=== PATIENT | male | born 1985 | race African-American/Black ===

== ENCOUNTER 2016-07-25 07:51 | Emergency (ER) | payer OTHER ==
[~2016-07-25] VITALS: Ht 188 cm; Wt 82.0 kg
[2016-07-25 07:53] VITALS: BP 141/75; PULSE 110; RESP 18; TEMP 99.3; O2SAT 98
[2016-07-25 08:00] VITALS: BP 135/77; PULSE 112; RESP 18; TEMP 100
--- NOTE | 2016-07-25 08:14 | PD ---
HPI Chief Complaint: Fever Time Seen by Provider: 08:01 Travel History International Travel<30 days: No Contact w/Intl Traveler<30days: No Traveled to known affect area: No History of Present Illness HPI So 31-year-old man who presents to the emergency department complaining of fever starting yesterday throughout the night. He states it felt like it was a high fever. He didn't have a thermometer. Tetanus slight headache. No other symptoms. No real cough cold symptoms. He states he feels like his tonsils are little bit inflamed. No painful swallowing or difficulty swallowing. No abdominal pain. No cough. No shortness of breath. He otherwise has been feeling generally well and healthy. No other past medical history. No recent international travel. No sick contacts. History Past Medical History Medical History: Denies Significant Hx Influenza Vaccination: No Past Surgical History Surgical History: No Previous Surgery Social History Alcohol Use: No Tobacco Use: No Allergies-Medications (Allergen,Severity, Reaction): Coded Allergies: No Known Allergies (Unverified , 07/25/16) Reported Meds & Prescriptions Reported Meds & Active Scripts Active No Active Prescriptions or Reported Medications Review of Systems Except as stated in HPI: all other systems reviewed are Neg Physical Exam Narrative GENERAL: Well-appearing 31-year-old man, no acute distress. SKIN: Warm and dry. HEAD: Atraumatic. Normocephalic. EYES: Pupils equal and round. No scleral icterus. No injection or drainage. ENT: No nasal bleeding or discharge. Mucous membranes pink and moist. TMs normal. Throat with a little bit of enlarged tonsils. No obvious purulence. NECK: No meningismus. Some minimal adenopathy and anterior cervical chain. CARDIOVASCULAR: Regular rate and rhythm. No murmur appreciated. RESPIRATORY: No accessory muscle use. Clear to auscultation. Breath sounds equal bilaterally. GASTROINTESTINAL: Abdomen soft, non-tender, nondistended. Hepatic and splenic margins not palpable. MUSCULOSKELETAL: No obvious deformities. No clubbing. No cyanosis. No edema. NEUROLOGICAL: Awake and alert. No obvious cranial nerve deficits. Motor grossly within normal limits. Normal speech. PSYCHIATRIC: Appropriate mood and affect; insight and judgment normal. Data Data Last Documented VS Vital Signs Date Time Temp Pulse Resp B/P Pulse Ox O2 Delivery O2 Flow Rate FiO2 07/25/16 08:00 100.0 112 18 135/77 07/25/16 07:53 98 Room Air Orders Group A Rapid Strep Screen (07/25/16 08:07) Influenzae A/B Antigen (07/25/16 08:07) MDM Medical Decision Making Medical Screen Exam Complete: Yes Emergency Medical Condition: Yes Interpretation(s) Influenza negative Rapid strep positive Differential Diagnosis Influenza, URI, tonsillitis, other Narrative Course Medical decision making INITIAL: 31 year-old woman presents emergent department with high fever, no clear source. Some throat pain and tonsillitis symptoms. We'll check rapid strep. Abrupt onset of high fever suggestive of influenza. We'll check rapid flu test. Otherwise patient looks well. I don't think he has any indications for further evaluation beyond that. FINAL: Patient with strep pharyngitis. Recommend antibiotic treatment. Diagnosis Primary Impression: Strep pharyngitis Additional Instructions: Take acetaminophen or ibuprofen as needed for sore throat and fevers. Drink plenty of fluids stay well-hydrated. Follow-up with your primary doctor in the next 5-7 days every not feeling significantly improved. Med/Other Pt SpecificInfo: No Change to Meds Scripts No Active Prescriptions or Reported Meds Disposition: 01 DISCHARGE HOME Condition: Stable Seymour Amezcua MD Jul 25, 2016 08:14
[2016-07-25] MEDS ORDERED: PENICILLIN G BENZATHINE 1,200,000 UNITS/2 ML SYRINGE IM ONE (09:00)
== END 2016-07-25 09:54 | disposition home or self-care (01) ==
LOC: NEPE 07:51
DX: J02.0 Streptococcal pharyngitis (principal); R50.9 Fever, unspecified
CPT/HCPCS: 87804; 87880; 96372; 99284; J0561